=== PATIENT | female | born 1995 | race Caucasian/White ===

== ENCOUNTER 2017-08-07 19:21 | Emergency (ER) | payer BC ==
[2017-08-07] MEDS ORDERED: Ketorolac INJ* 30 MG/ML 1 ML VIAL IV PUSH ONE (22:39)
[2017-08-07] MEDS ORDERED: diPHENhydraMINE IV* 50 MG/ML 1 ml VIAL (BENADRYL) IV ONE (22:39)
[2017-08-07] MEDS ORDERED: Metoclopramide IV* 5 MG/ML 2 ML VIAL IV SLOW PU ONE (22:39)
[2017-08-07] MEDS ORDERED: NS 0.9% 1000 ML* 1,000 ML IV ONE (22:40)
--- NOTE | 2017-08-08 00:51 | ED ---
Michael Peck Tiffany, scribed for Ludin Marshall MD on 08/07/17 at 2244 . Headache - HPI Summary HPI Summary: The patient is a 22 year old F with a chief complaint of headache since yesterday. The patient rates the pain 9/10 in severity. Symptoms aggravated by light. Symptoms alleviated by nothing. Patient has treated the headache with one tablet of Excerdine and Advil without relief. Patient reports nausea, vomiting, photophobia, and dizziness. Patient denies fever, diarrhea, and abdominal pain. Patient has history of migraines. Patient was diagnosed with the flu four days ago and began Tamiflu three days ago. Patient was diagnosed with concussion one month ago. - History Of Current Complaint Chief Complaint: EDHeadache Stated Complaint: HEADACHE Time Seen by Provider: 08/07/17 22:34 Hx Obtained From: Patient Onset/Duration: Started days ago - Yesterday, Still Present Currently Pain Is: Current Pain Scale(0-10)= - 9 Aggravating Factor: Bright Lights Allevating Factors: Nothing Associated Signs And Symptoms: Other (Noted In Comments) - nausea, vomiting, photophobia, and dizziness; NEGATIVE: fever, diarrhea, and abdominal pain - Allergies/Home Medications Allergies/Adverse Reactions: Allergies Allergy/AdvReac Type Severity Reaction Status Date / Time No Known Allergies Allergy Verified 08/07/17 19:30 PMH/Surg Hx/FS Hx/Imm Hx Previously Healthy: No Opthamlomology History: Reports: Hx Contacts or Glasses EENT History: Denies: Hx Deafness Neurological History: Reports: Hx Headaches, Hx Migraine Infectious Disease History: No Infectious Disease History: Denies: Traveled Outside the [place] in Last 30 Days - Family History Known Family History: Positive: Other - No relevant family history - Social History Hx Substance Use: No Substance Use Type: Reports: None Hx Tobacco Use: No Smoking Status (MU): Never Smoked Tobacco Review of Systems Negative: Fever Positive: Photophobia Positive: Vomiting, Nausea. Negative: Abdominal Pain, Diarrhea Neurological: Other - Dizziness Positive: Headache All Other Systems Reviewed And Are Negative: Yes Physical Exam - Summary Physical Exam Summary: General: well-appearing, no pain distress Skin: warm, color reflects adequate perfusion, dry Head: normal Eyes: EOMI, ALEJANDRO ENT: normal Neck: supple, nontender Respiratory: CTA, breath sounds present Cardiovascular: RRR Abdomen: soft, nontender Bowel: present Musculoskeletal: normal, strength/ROM intact Neurological: normal, sensory/motor intact, A&O x3 Psychological: affect/mood appropriate Triage Information Reviewed: Yes Vital Signs On Initial Exam: Initial Vitals Temp Pulse Resp BP Pulse Ox 97.7 F 70 16 126/82 98 08/07/17 19:31 08/07/17 19:31 08/07/17 19:31 08/07/17 19:31 08/07/17 19:31 Vital Signs Reviewed: Yes Diagnostics - Vital Signs Vital Signs Temp Pulse Resp BP Pulse Ox 08/07/17 19:31 97.7 F 70 16 126/82 98 - Laboratory Lab Statement: Any lab studies that have been ordered have been reviewed, and results considered in the medical decision making process. Headache Course/Dx - Course Course Of Treatment: 22 y/o F complains of headache. Patient has history of migraines. In ED, patient is feeling better and is headache-free. She had negative exams. Patient will be discharged with instructions for headache. - Diagnoses Provider Diagnoses: Headache Discharge - Discharge Plan Condition: Stable Disposition: HOME Patient Education Materials: Acute Headache (ED) [facility] SANTIZO [Primary Care Provider] - Additional Instructions: RETURN TO EMERGENCY DEPARTMENT FOR ANY NEW OR WORSENING SYMPTOMS The documentation as recorded by the Michael grande Tiffany accurately reflects the service I personally performed and the decisions made by Rolando su Abdul, MD.
[2017-08-08 01:12] VITALS: BP 118/76
== END 2017-08-08 01:11 | disposition home or self-care (01) ==
LOC: ED 19:21
DX: R51 Headache (principal); R11.2 Nausea with vomiting, unspecified; H53.149 Visual discomfort, unspecified; R42 Dizziness and giddiness
CPT/HCPCS: 96374; 96375; 99284; J1200; J1885; J2765

== ENCOUNTER 2017-08-09 14:08 | Emergency (ER) | payer BC ==
--- NOTE | 2017-08-09 19:04 | RAD ---
HISTORY: Headache, hyperreflexia COMPARISONS: None TECHNIQUE: Multiple contiguous axial CT scans were obtained of the head without intravenous contrast. FINDINGS: HEMORRHAGE/INFARCT: There is no hemorrhage or acute infarct. MASSES/SHIFT: There is no mass or shift. EXTRA-AXIAL SPACES: There are no extra-axial fluid collections. SULCI AND VENTRICLES: The sulci and ventricles are normal in size and position for the patient's stated age. CEREBRUM: There are no focal parenchymal abnormalities. BRAINSTEM: There are no focal parenchymal abnormalities. CEREBELLUM: There are no focal parenchymal abnormalities. VESSELS: The vessels are grossly normal. PARANASAL SINUSES: The paranasal sinuses are clear. ORBITS: The orbits are unremarkable. BONES AND SOFT TISSUE: No bone or soft tissue abnormalities are noted. OTHER: None IMPRESSION: NO ACUTE INTRACRANIAL PATHOLOGY.
--- NOTE | 2017-08-09 19:08 | RAD ---
HISTORY: Headache, hyperreflexia COMPARISONS: None TECHNIQUE: Multiple contiguous axial CT scans were obtained of the cervical spine without intravenous contrast, with coronal and sagittal multiplanar reformations. FINDINGS: BRAIN: The visualized brain is unremarkable CENTRAL CANAL: Evaluation of the central canal is limited on CT technique, however there is no obvious canalicular mass or epidural hemorrhage. ALIGNMENT: There is straightening of the normal cervical lordosis. VERTEBRAL BODIES: The odontoid process is intact. The atlantoaxial intervals are symmetric. The vertebral bodies are normal in attenuation, without fracture. JOINTS: There is no subluxation or dislocation MUSCULATURE: Normal INTERVERTEBRAL DISCS: The intervertebral disc spaces are relatively preserved in height. AXIAL IMAGES: On axial images, there is no osseous neural foraminal narrowing or central canal stenosis. SOFT TISSUES: The visualized soft tissues of the neck are unremarkable. The prevertebral fat stripe is preserved. OTHER: None. IMPRESSION: STRAIGHTENING OF THE CERVICAL LORDOSIS. OTHERWISE UNREMARKABLE CT OF THE NECK
[2017-08-09 19:13] LABS: ABS Basophils 0 10^3/ul (0-0.2); ABS Eosinophils 0 10^3/ul (0-0.6); ABS Lymphocytes 1.7 10^3/ul (1.0-4.8); ABS Monocytes 0.5 10^3/ul (0-0.8); ABS Neutrophils 3.6 10^3/ul (1.5-7.7); ABS Nucleated RBC 0 10^3/ul; Eosinophil % 0.4 % (0-6); Hematocrit 39 % (35-47); Hemoglobin 13.1 g/dl (12.0-16.0); Lymphocyte % 29.2 % (25-47); Mean Corpuscular HGB Conc 33 g/dl (31-36); Mean Corpuscular Hemoglobin 28 pg (27-31); Mean Corpuscular Volume 84 fL (80-97); Mean Platelet Volume 8 um3 (7.4-10.4); Nucleated Red Blood Cells % 0; Platelet Count 201 10^3/ul (150-450); Red Blood Count 4.68 10^6/ul (4.0-5.4); Red Cell Distribution Width 14 % (10.5-15); White Blood Count 5.7 10^3/ul (3.5-10.8)
[2017-08-09] MEDS ORDERED: Ketorolac INJ* 30 MG/ML 1 ML VIAL IV PUSH ONE (19:20)
[2017-08-09 19:31] LABS: EGFR Non-African American 76.9 (>60)
[2017-08-09 21:40] VITALS: BP 122/69
--- NOTE | 2017-08-20 20:25 | ED ---
Yoan Peck Stephanie, scribed for Tobias Sosa MD on 08/09/17 at 1847 . Headache - HPI Summary HPI Summary: The pt is a 22 y/o F presenting to the ED with c/o PUTNAM that began on July 04. The PUTNAM is located in the occipital region of the head. Symptoms include neck pain, lightheadedness, photophobia, pressure behind eyes, vomiting (08/07/17) . The symptoms worsened after the onset of influenza. The pt denies fever, visual changes, numbness and weakness in extremities bilaterally, chills and diaphoresis. The pt reports falling off a snow mobile and got a concussion from the event. She reports PUTNAM every day since hitting her head. Aggravating factors include standing up. Alleviating factors include lying supine. - History Of Current Complaint Chief Complaint: EDHeadache Stated Complaint: HEADACHE/NECK PAIN Time Seen by Provider: 08/09/17 18:41 Hx Obtained From: Patient Onset/Duration: Sudden Onset, Still Present, Worse Since - influenza onset on 08/06/17. Timing: Constant Character: Migraine Location of Headache: Occipital Aggravating Factor: Other - standing erect Allevating Factors: Position Change - lying supine Associated Signs And Symptoms: Nausea, Vomiting, Neck Pain - Allergies/Home Medications Allergies/Adverse Reactions: Allergies Allergy/AdvReac Type Severity Reaction Status Date / Time No Known Allergies Allergy Verified 08/07/17 19:30 PMH/Surg Hx/FS Hx/Imm Hx Endocrine/Hematology History: Reports: Hx Thyroid Disease Sensory History: Reports: Hx Contacts or Glasses Denies: Hx Deafness Opthamlomology History: Reports: Hx Contacts or Glasses Neurological History: Reports: Hx Headaches, Hx Migraine - Surgical History Surgery Procedure, Year, and Place: none Infectious Disease History: No Infectious Disease History: Denies: Traveled Outside the [place] in Last 30 Days - Family History Known Family History: Positive: Cardiac Disease, Diabetes, Other - migraines - Social History Occupation: Student Lives: Dormitory/Roommates Alcohol Use: Occasionally Hx Substance Use: No Substance Use Type: Reports: None Hx Tobacco Use: No Smoking Status (MU): Never Smoked Tobacco Review of Systems Negative: Fever, Chills, Skin Diaphoresis Positive: Photophobia, Other - pressure behind eyes. Negative: Blurred Vision Positive: Vomiting Positive: Other - neck pain Neurological: Other - lightheadedness Negative: Weakness, Numbness All Other Systems Reviewed And Are Negative: Yes Physical Exam - Summary Physical Exam Summary: Appearance: Well-appearing, Well-nourished Skin: Warm, Dry, No rash Eyes: Normal, PERRL, EOMI, sclera anicteric ENT: Normal Neck: Supple, nontender Respiratory: Clear to auscultation Cardiovascular: S1, S2, no murmur, no rub, no gallop Abdomen: Soft, nontender, no organomegaly Bowel sounds: Present Musculoskeletal: Normal, Strength/ROM Intact, no edema, pulses symmetrical Neurological: A&Ox3, cranial nerves II-XII WNL, follows commands, gait nml, sensation intact to pin and light touch, clonus in L foot. Hyperreflexia in L leg. Psychiatric: affect normal, behavior appropriate, dressed appropriately, judgment intact Triage Information Reviewed: Yes Vital Signs On Initial Exam: Initial Vitals Temp Pulse Resp BP Pulse Ox 98.1 F 84 18 120/69 100 08/09/17 14:21 08/09/17 14:21 08/09/17 14:21 08/09/17 14:21 08/09/17 14:21 Vital Signs Reviewed: Yes Diagnostics - Vital Signs Vital Signs Temp Pulse Resp BP Pulse Ox 08/09/17 16:09 98.3 F 76 18 127/61 100 08/09/17 14:21 98.1 F 84 18 120/69 100 - Laboratory Result Diagrams: 08/09/17 19:03 08/09/17 19:03 Lab Statement: Any lab studies that have been ordered have been reviewed, and results considered in the medical decision making process. - CT Cervical Spine CT Interpretation: No Acute Changes CT Interpretation Completed By: Radiologist - STRAIGHTENING OF THE CERVICAL LORDOSIS. OTHERWISE UNREMARKABLE CT OF THE NECK Brain CT Interpretation: No Acute Changes CT Interpretation Completed By: Radiologist - NO ACUTE INTRACRANIAL PATHOLOGY. Headache Course/Dx - Course Course Of Treatment: Partial relief with Toridol. Follow up with neurology for physical exam. - Diagnoses Provider Diagnoses: Influenza, Migraine Discharge - Discharge Plan Condition: Fair Disposition: HOME Prescriptions: SUMAtriptan TAB* [Imitrex TAB*] 100 mg PO SEE INSTRUCTIONS PRN #12 tab MDD 2 PRN Reason: Headache Patient Education Materials: Migraine Headache (ED), Influenza (ED) Referrals: [facility] - Edward SANTIZO [Primary Care Provider] - 3 Days Additional Instructions: follow up with neurology The documentation as recorded by the Yoan grande Stephanie accurately reflects the service I personally performed and the decisions made by me, Tobias Sosa MD.
== END 2017-08-09 21:39 | disposition home or self-care (01) ==
LOC: ED 14:08
DX: J11.1 Influenza due to unidentified influenza virus with other respiratory manifestations (principal); G43.909 Migraine, unspecified, not intractable, without status migrainosus; E07.9 Disorder of thyroid, unspecified
CPT/HCPCS: 36415; 70450; 72125; 80053; 85025; 99283; J1885